=== PATIENT | female | born 1990 | race Caucasian/White ===

== ENCOUNTER → 2017-04-01 | Outpatient (CLI) | payer OTHER | END | disposition home or self-care (01) | LOC: C.RC 13:41 | PROVIDERS: ATTEND Family Medicine | DX: J45.909 Unspecified asthma, uncomplicated (principal) ==

== ENCOUNTER 2017-10-31 12:09 | Emergency (ER) | payer OTHER ==
[~2017-10-31] VITALS: Ht 149.9 cm; Wt 57.8 kg
[2017-10-31 12:13] VITALS: TEMP 37; Ht 149.9 cm; Wt 57.8 kg
[2017-10-31] MEDS ORDERED: BUPR200T2 PO (13:04)
[2017-10-31] MEDS ORDERED: CLR10 PO (13:04)
[2017-10-31] MEDS ORDERED: ESCI10TA17 PO (13:04)
[2017-10-31 13:17] VITALS: BP 118/70; PULSE 70; O2SAT 99
--- NOTE | 2017-11-01 07:10 | EMERGENCY ROOM VISIT NOTE ---
ED Visit Note First contact with patient: 12:19 Chief Complaint: I cut my right finger. History of Present Illness: Ms. Castellano is a 27-year-old female who ambulates into the ED complaining of a laceration to the distal phalanx of the right index finger. Patient reports just prior to coming to the hospital she was using a razor blade to trim her eyebrows and accidentally cut her finger. She did control bleeding prior to arrival at the hospital but did not wash the wound. As stated with her laceration she also reports a stinging and throbbing pain over the distal finger. She rates this discomfort 3/10. The pain is nonradiating. The pain worsens with palpation. She has not identified any alleviating factors related to the pain. She has not taken any medications for pain prior to arrival at the hospital. She denies any associated symptoms including other finger pain, index finger weakness/numbness/tingling. Review of Systems: As noted above in history of present illness. Past Medical History: Patient denies. Current Medications: Lexapro, Wellbutrin, Claritin patient denies. Allergies to Medications: Cephalexin. Social History: Patient is currently a nursing student; she feels safe in his home environment; she denies tobacco use. Tetanus Immunization Status: Patient reports up-to-date. Physical Examination: Vital Signs: Date Time Temp Pulse Resp B/P (MAP) Pulse Ox O2 Delivery O2 Flow Rate FiO2 10/31/17 13:17 70 16 118/70 99 10/31/17 12:13 37.0 72 18 120/74 99 Room Air GENERAL: 27-year-old female in mild distress due to pain, nontoxic-appearing, afebrile and hemodynamically stable. NEUROLOGICAL: Awake, alert and oriented to person, place and time. Answering questions appropriately and following commands. SKIN: Warm, dry and pink. Right index Finger: 0.9 mm superficial-thickness laceration over the lateral aspect of the distal femoral necks. No active bleeding. Laceration also has a small superficial flap of skin and does minimally extend into the fingernail but not the nailbed. RIGHT INDEX FINGER: No gross bony deformity. Soft tissue as noted above. Full range of motion in flexion and extension of the MCP, PIP and DIP joint. Throughout the finger the skin was warm and pink and capillary refill was brisk. He was able to distinguish light sensations to all dermatomes of the finger. ED Course: Patient is assessed as noted above. Patient's medication list was reviewed. Patient's wound was cleansed with antibacterial soap and water and Steri-Strips were used to approximate the laceration. No complications and the patient tolerated the procedure well. Patient was educated about tonight's findings and instructed on her treatment plan; she verbalizes understanding and agreement with this plan. Clinical Impression: Laceration of the right index finger. Disposition: Patient discharged home in stable condition; prior to departure she was reassessed and subjectively reported rated her discomfort 2/10. Plan: Comfort measures, wound care and signs of infection were discussed with the patient. Patient was encouraged to follow-up with PCP or return to the ED for any signs of infection or any new/concerning symptoms.
== END 2017-10-31 13:18 | disposition home or self-care (01) ==
LOC: C.EDB 12:10 → C.EDD 13:18
DX: S61.210A Laceration without foreign body of right index finger without damage to nail, initial encounter (principal); W26.8XXA Contact with other sharp object(s), not elsewhere classified, initial encounter; Z79.899 Other long term (current) drug therapy; Z88.1 Allergy status to other antibiotic agents